=== PATIENT | female | born 1995 | race Caucasian/White ===

== ENCOUNTER 2020-03-23 12:25 | Emergency (ER) | payer MEDICAID ==
[~2020-03-23] VITALS: Ht 165.1 cm; Wt 57.0 kg
--- NOTE | 2020-03-23 12:50 | NUR ---
INITIAL PT CONTACT. PT PRESENTS TO ED C/O PASSING BLOODY STOOLS SINCE Feb. PT. REPORTS IT GETTING WORSE TIME PASSES, "MORE BLOOD IN THE TOILET AND MY BUTT DOESN'T HURT SO I DONT THINK IT'S A HEMORRHOID". MILD NAUSEA AND ABD PAIN ASSOCIATED. PT SITTING UPRIGHT ON GURNEY WITH CALL LIGHT AND PERSONAL BELONGINGS WITHIN REACH. VSS, NAD. WILL CONTINUE TO MONITOR. AWAITING ERP.
--- NOTE | 2020-03-23 13:56 | NUR ---
PT UP TO BATHROOM WITH THIS RN TO PROVIDE URINE SAMPLE. RETURNED TO ROOM. NAD, VSS. PT UPRIGHT ON [facility]. WILL CONTINUE TO MONITOR.
--- NOTE | 2020-03-23 13:59 | NUR ---
ERP AT BEDSIDE
[2020-03-23 14:28] LABS: BASOPHILS % (AUTO) 1 % (0-1); EOSINOPHILS % (AUTO) 4 % (1-7); LYMPHOCYTES % (AUTO) 27 % (22-44); MEAN CORPUSCULAR HEMOGLOBIN 30.9 pg (27.0-34.8); MEAN CORPUSCULAR HGB CONC 34.3 g/dL (32.4-35.8); MONOCYTES % (AUTO) 8 % (2-9); NEUTROPHILS % (AUTO) 61 % (42-75); PLATELET COUNT 268 x10^3/uL (130-400); RED CELL DISTRIBUTION WIDTH 12.8 % (9.6-15.2)
[2020-03-23 14:39] LABS: MD NO
[2020-03-23 14:41] LABS: ALANINE AMINOTRANSFERASE 16 U/L (12-78); ALBUMIN 3.9 g/dL (3.4-5.0); ANION GAP 5 mmol/L (5-15); CHLORIDE 109 mmol/L (98-107); CREATININE 0.74 mg/dL (0.55-1.02)
[2020-03-23 14:45] LABS: ALKALINE PHOSPHATASE 50 U/L (45-117); BILIRUBIN,TOTAL 0.3 mg/dL (0.2-1.0); TOTAL PROTEIN 7.1 g/dL (6.4-8.2)
--- NOTE | 2020-03-23 15:03 | NUR ---
PT SITTING UPRIGHT ON GURNEY WITH CALL LIGHT AND PERSONAL BELONGINGS WITHIN REACH. VSS, NAD. WILL CONTINUE TO MONITOR.
--- NOTE | 2020-03-23 16:15 | NUR ---
PT UPSET ABOUT D/C AND "NOT ALL THE TESTS I NEED AND WANT TO HAVE DONE". DISCUSSED WITH PT APPROPRIATE FOLLOW UP. VERBALIZED UNDERSTANDING.
[2020-03-23 16:19] VITALS: BP 102/69
--- NOTE | 2020-03-23 16:19 | NUR ---
Patient given discharge instructions and they have confirmed that they understand the instructions. Patient ambulatory with steady gait.
== END 2020-03-23 16:25 | disposition home or self-care (01) ==
LOC: ED 13:50
DX: O46.91 Antepartum hemorrhage, unspecified, first trimester (principal); K92.1 Melena; R10.2 Pelvic and perineal pain; R10.84 Generalized abdominal pain; R11.0 Nausea; Z3A.08 8 weeks gestation of pregnancy
CPT/HCPCS: 36415; 80053; 83690; 84702; 84703; 85025; 99285